=== PATIENT | male | born 1985 | race Caucasian/White ===

== ENCOUNTER 2021-08-12 10:52 | Emergency (ER) | payer BC ==
[2021-08-12] MEDS ORDERED: Acetaminophen 325 MG Tab PO ONE (13:21)
[2021-08-12] MEDS ORDERED: Cyclobenzaprine 10 MG Tab PO ONE (13:44)
== END 2021-08-12 14:50 | disposition home or self-care (01) ==
LOC: JD.ED 10:52
DX: S01.112A Laceration without foreign body of left eyelid and periocular area, initial encounter (principal); M54.50 Low back pain, unspecified; J38.7 Other diseases of larynx; W18.09XA Striking against other object with subsequent fall, initial encounter
CPT/HCPCS: 70450; 72100; 72220; 99284; A9270